=== PATIENT | female | born 1935 | race Caucasian/White ===

== ENCOUNTER 2017-12-27 07:47 | Day surgery (SDC) | payer OTHER ==
[~2017-12-27 07:47] MED LIST: ADULT ASPIRIN R81 MG PO; DOXAZOSIN MESYLA4 MG PO; LEVEMIR100 UNIT/1; LOZARTAN; MEMANTINE HCL10 MG PO; OMEPRAZOLE40 MG PO; SIMVASTATIN20 MG PO; TOFRANIL10 MG PO; [UNRECOGNIZED DRUG - OTHER]
[2017-12-30] MEDS ORDERED: JANUMET XR 50-1 EAC1 PO (12:30)
[2017-12-30] MEDS ORDERED: [UNRECOGNIZED DRUG - OTHER] (12:30)
== END 2017-12-27 16:00 | disposition home or self-care (01) ==
LOC: CIR.AMB 07:47 → EDBD 09:30 → CIR.AMB 09:30
DX: N39.41 Urge incontinence (principal); N32.81 Overactive bladder
CPT/HCPCS: 64581; C1778

== ENCOUNTER 2018-01-10 08:19 | Day surgery (SDC) | payer OTHER ==
[~2018-01-10 08:19] MED LIST changes: +JANUMET XR 50-1 EAC1 PO
== END 2018-01-10 17:15 | disposition home or self-care (01) ==
LOC: CIR.AMB 08:19
DX: N39.41 Urge incontinence (principal); N32.81 Overactive bladder
CPT/HCPCS: 64590; C1767